=== PATIENT | male | born 1980 | race Caucasian/White ===

== ENCOUNTER 2025-07-02 08:36 | Emergency (ER) | payer OTHER, BC ==
[~2025-07-02] VITALS: Ht 188 cm; Wt 170.0 kg
[2025-07-02] MEDS ORDERED: LISINOPRIL10 MG PO (09:24)
[2025-07-02] MEDS ORDERED: DIPHTH,PERTUSS(ACELL),TET VAC 0.5 ML SYRINGE IM ONE ×2 (09:30→09:45)
[2025-07-02] MEDS ORDERED: ACETAMINOPHEN 500 MG TAB PO ONE (09:45)
[2025-07-02 10:45] VITALS: BP 153/96
== END 2025-07-02 10:46 | disposition home or self-care (01) ==
LOC: ED 08:36
DX: S80.02XA Contusion of left knee, initial encounter (principal); Z88.8 Allergy status to other drugs, medicaments and biological substances; Z23 Encounter for immunization; W01.0XXA Fall on same level from slipping, tripping and stumbling without subsequent striking against object, initial encounter
CPT/HCPCS: 73562; 90471; 90715; 99283-25